=== PATIENT | male | born 1975 | race Caucasian/White ===

== ENCOUNTER 2020-10-30 10:33 | Emergency (ER) | payer OTHER ==
--- NOTE | 2020-10-30 11:30 | RAD REPORT ---
EXAM DESCRIPTION: RAD - Chest Single View - 10/30/2020 11:05 am CLINICAL HISTORY: DYSPNEA Chest pain. COMPARISON: No comparisons FINDINGS: Portable technique limits examination quality. Mild bilateral interstitial lung opacities are seen. This may represent bronchitis or viral pneumonit is. The heart is normal in size. No displaced fractures.
[2020-10-30] MEDS ORDERED: METHYLPREDNISOLONE 125 MG INJ ONE (11:40)
[2020-10-30 11:42] LABS: Absolute Lymphocytes (CBC) 1.2 K/uL (0.7-4.9); Basophils % 0.9 % (0-1.3); Hematocrit 44.1 % (39.6-49.0); Lymphocytes % 28.2 % (15.3-44.8); MPV 9.1 fL (7.6-11.3); RBC Red Blood Cell Count 5.03 M/uL (4.33-5.43)
[2020-10-30 11:58] LABS: ALT/SGPT 32 U/L (12-78); AST/SGOT 24 U/L (15-37); Albumin 3.5 g/dL (3.4-5.0); Alkaline Phosphatase 59 U/L (45-117); BUN Blood Urea Nitrogen 16 mg/dL (7-18); Bicarbonate 27 mmol/L (21-32); Bilirubin Direct 0.2 mg/dL (0-0.2); Bilirubin Total 0.8 mg/dL (0.2-1.0); Ferritin 362.4 ng/mL (26-388); Glucose Level 85 mg/dL (74-106); NT PRO-BNP 8 pg/mL (<125); Potassium 3.8 mmol/L (3.5-5.1); Protein, Total 7.1 g/dL (6.4-8.2); Sodium Level 138 mmol/L (136-145); Troponin (Emerg Dept Use Only) < 0.02 ng/mL (0.0-0.045)
[2020-10-30 12:16] LABS: SARS-COV-2 RT PCR POSITIVE (NEGATIVE)
--- NOTE | 2020-10-30 12:27 | ER ---
Nurse's Notes [facility] Name: Zhang Agee Age: 44 yrs Sex: Male : 1975 Arrival Date: 10/30/2020 Time: 10:35 Bed 20 Private MD: Diagnosis: Coronavirus infection, unspecified;Viral pneumonia, unspecified Presentation: 10/30 10:42 Chief complaint: Patient states: Feeling sick on and off x 1 week. Tested negative for ca1 Covid on 10/23/2020. Fever, headache, vertigo x 1 week. Diarrhea, Nausea x 6 days. SOB since last night. Dry Cough today. Coronavirus screen: Client denies travel out of the [place] in the last 14 days. cough unrelated to allergies, diarrhea, fatigue, fever, headache, nausea, shortness of breath, Client presents with at least one sign or symptom that may indicate coronavirus-19. Standard/surgical mask placed on the client. Provider contacted for isolation considerations. The client reports previous COVID testing was negative. Date of collection: October 23, 2020. Ebola Screen: Patient negative for fever greater than or equal to 101.5 degrees Fahrenheit, and additional compatible Ebola Virus Disease symptoms Patient denies exposure to infectious person. Patient denies travel to an Ebola-affected area in the 21 days before illness onset. No symptoms or risks identified at this time. Initial Sepsis Screen: Does the patient meet any 2 criteria? No. Patient's initial sepsis screen is negative. Does the patient have a suspected source of infection? No. Patient's initial sepsis screen is negative. Risk Assessment: Do you want to hurt yourself or someone else? Patient reports no desire to harm self or others. Onset of symptoms was October 30, 2020. 10:42 Method Of Arrival: Ambulatory ca1 10:42 Acuity: ABBY 3 ca1 Triage Assessment: 10:40 Respiratory: Onset: The symptoms/episode began/occurred x 1 week, the patient has mild rb3 shortness of breath. Historical: - Allergies: 10:44 No Known Allergies; ca1 - PMHx: 10:44 None; ca1 - Immunization history:: Flu vaccine is up to date. - Social history:: Smoking status: Patient denies any tobacco usage or history of. - Family history:: not pertinent. - Hospitalizations: : No recent hospitalization is reported. Screenin:40 Abuse screen: Denies threats or abuse. Nutritional screening: No deficits noted. rb3 Tuberculosis screening: No symptoms or risk factors identified. Fall Risk None identified. Assessment: 10:40 General: Appears in no apparent distress. comfortable, Behavior is calm, cooperative. rb3 Pain: Complains of pain in bodyache. Neuro: Level of Consciousness is awake, alert, obeys commands, Oriented to person, place, time, situation, Reports headache. Cardiovascular: Patient's skin is warm and dry. Respiratory: Reports shortness of breath cough that is productive, Airway is patent Respiratory effort is even, unlabored, Respiratory pattern is regular, symmetrical. GI: Reports diarrhea. : No signs and/or symptoms were reported regarding the genitourinary system. 11:30 Reassessment: Patient appears in no apparent distress at this time. No changes from rb3 previously documented assessment. 12:30 Reassessment: Patient appears in no apparent distress at this time. Patient and/or rb3 family updated on plan of care and expected duration. Pain level reassessed. Patient is alert, oriented x 3, equal unlabored respirations, skin warm/dry/pink. Vital Signs: 10:42 BP 127 / 91; Pulse 86; Resp 18 S; Temp 97(TE); Pulse Ox 95% on R/A; Weight 96.62 kg ca1 (R); Height 5 ft. 8 in. (172.72 cm) (R); 11:30 BP 123 / 96; Pulse 81; Resp 19; Pulse Ox 96% ; rb3 12:30 BP 122 / 91; Pulse 85; Resp 20; Pulse Ox 95% ; rb3 10:42 Body Mass Index 32.39 (96.62 kg, 172.72 cm) ca1 ED Course: 10:35 Patient arrived in ED. ag5 10:37 Jonatan Alford MD is Attending Physician. rn 10:40 Patient has correct armband on for positive identification. Bed in low position. Call rb3 light in reach. Side rails up X 1. Pulse ox on. NIBP on. 10:44 Triage completed. ca1 10:44 Arm band placed on right wrist. ca1 10:46 Darcie Duff, RN is Primary Nurse. rb3 11:05 CXR XRAY In Process Unspecified. EDMS 11:23 No provider procedures requiring assistance completed. Inserted saline lock: 20 gauge ca1 in right antecubital area, using aseptic technique. Blood collected. 11:23 Initial lab(s) drawn, by me, sent to lab. First set of blood cultures drawn by me. ca1 12:32 Juan Alberto De La Vega MD is Referral Physician. rn 12:59 No provider procedures requiring assistance completed. IV discontinued, intact, rb3 bleeding controlled, No redness/swelling at site. Pressure dressing applied. Administered Medications: 11:32 Drug: SOLU-Medrol 125 mg Route: IVP; Site: right antecubital; ca1 11:45 Follow up: Response: No adverse reaction rb3 Outcome: 12:27 Discharge ordered by MD. rn 12:59 Discharged to home ambulatory. rb3 12:59 Condition: stable 12:59 Discharge instructions given to patient, Instructed on discharge instructions, follow up and referral plans. medication usage, Demonstrated understanding of instructions, follow-up care, medications, Prescriptions given X 2. 12:59 Patient left the ED. rb3 Signatures: Dispatcher [employer] EDMS Jonatan Alford MD MD rn Acob, Cheryl RN RN ca1 Casi Marques ag5 Darcie Duff, MARSHALL RN rb3 Corrections: (The following items were deleted from the chart) 13:19 13:18 Patient left the ED. rb3 rb3
--- NOTE | 2020-10-30 12:28 | EDPHYS ---
Physician Documentation [facility] Name: Zhang Agee Age: 44 yrs Sex: Male : 1975 Arrival Date: 10/30/2020 Time: 10:35 Bed 20 Private MD: ED Physician Jonatan Alford HPI: 10/30 10:47 This 44 yrs old Male presents to ER via Ambulatory with complaints of rn Shortness Of Breath, Fever. 10:47 The patient has shortness of breath with light activity. Onset: The symptoms/episode rn began/occurred 1 week(s) ago. Duration: The symptoms are continuous, and are steadily getting worse. The patient's shortness of breath is aggravated by light activity, walking. Associated signs and symptoms: Pertinent positives: productive cough, fever, Pertinent negatives: hemoptysis, loss of consciousness. Severity of symptoms: At their worst the symptoms were moderate in the emergency department the symptoms are unchanged. The patient has not experienced similar symptoms in the past. The patient has not recently seen a physician. Reports cough and worsening sob for 1 week, tested at beginning of illness and was negative, father COVID + and around him at [place]. No chronic lung problems. . Historical: - Allergies: 10:44 No Known Allergies; ca1 - PMHx: 10:44 None; ca1 - Immunization history:: Flu vaccine is up to date. - Social history:: Smoking status: Patient denies any tobacco usage or history of. - Family history:: not pertinent. - Hospitalizations: : No recent hospitalization is reported. ROS: 10:47 Constitutional: + fever Eyes: Negative for injury, pain, redness, and discharge, ENT: rn Negative for injury, pain, and discharge, Neck: Negative for injury, pain, and swelling, Cardiovascular: Negative for chest pain, palpitations, and edema, Respiratory: + sob and cough Abdomen/GI: + diarrhea, no abd pain Back: Negative for injury and pain, MS/Extremity: Negative for injury and deformity, Skin: Negative for injury, rash, and discoloration, Neuro: Negative for numbness, tingling, and seizure. Exam: 10:47 Constitutional: This is a well developed, well nourished patient who is awake, alert, rn mild tachypnea Head/Face: Normocephalic, atraumatic. Eyes: Periorbital areas with no swelling, redness, or edema. ENT: no stridor Cardiovascular: Regular rate and rhythm. No pulse deficits. Respiratory: Mild tachypnea Abdomen/GI: soft, non-tender Skin: Warm, dry MS/ Extremity: Pulses equal, no cyanosis. Neuro: Awake and alert, GCS 15 11:31 ECG was reviewed by the Attending Physician. rn Vital Signs: 10:42 BP 127 / 91; Pulse 86; Resp 18 S; Temp 97(TE); Pulse Ox 95% on R/A; Weight 96.62 kg ca1 (R); Height 5 ft. 8 in. (172.72 cm) (R); 11:30 BP 123 / 96; Pulse 81; Resp 19; Pulse Ox 96% ; rb3 12:30 BP 122 / 91; Pulse 85; Resp 20; Pulse Ox 95% ; rb3 10:42 Body Mass Index 32.39 (96.62 kg, 172.72 cm) ca1 MDM: 10:37 Patient medically screened. rn 12:25 Differential diagnosis: pneumonia, Pulmonary Embolism COVID pneumonia, FLU pneumonia. rn Data reviewed: vital signs, nurses notes, lab test result(s), EKG, radiologic studies, plain films, and as a result, I will discharge patient. Test interpretation: by ED physician or midlevel provider: plain radiologic studies, CXR shoes mild bilateral infiltrate consistent with viral pneumonia. Counseling: I had a detailed discussion with the patient and/or guardian regarding: the historical points, exam findings, and any diagnostic results supporting the discharge/admit diagnosis, lab results, radiology results, the need for outpatient follow up, to return to the emergency department if symptoms worsen or persist or if there are any questions or concerns that arise at home. Special discussion: I discussed with the patient/guardian in detail that at this point there is no indication for admission to the hospital. It is understood, however, that if the symptoms persist or worsen the patient needs to return immediately for re-evaluation. ED course: Pt with mild COVID pneumonia, not hypoxic, procal neg, ferritin normal, will dc home with steroids and prn inhaler. Return precautions given and understood. . 10/30 10:46 Order name: Blood Culture Adult (2) rn 10/30 10:46 Order name: BMP rn 10/30 10:46 Order name: C-Reactive Protein rn 10/30 10:46 Order name: CBC with Diff rn 10/30 10:46 Order name: COVID-19 rn 10/30 10:46 Order name: D-Dimer rn 10/30 10:46 Order name: Ferritin rn 10/30 10:46 Order name: Flu rn 10/30 10:46 Order name: LFT's rn 10/30 10:46 Order name: Procalcitonin rn 10/30 10:46 Order name: Troponin (emerg Dept Use Only); Complete Time: 12: rn 10/30 10:46 Order name: BNP; Complete Time: 12: rn 10/30 10:47 Order name: Blood Culture EDMS 10/30 10:47 Order name: Basic Metabolic Panel; Complete Time: 12: EDND 10/30 10:46 Order name: CXR XRAY; Complete Time: 11:31 rn 10/30 10:46 Order name: EKG; Complete Time: 10:48 rn 10/30 10:46 Order name: Cardiac monitoring; Complete Time: 11: rn 10/30 10:46 Order name: Droplet/Contact Precautions; Complete Time: 11: rn 10/30 10:46 Order name: EKG - Nurse/Tech; Complete Time: 11: rn 10/30 10:46 Order name: IV Start; Complete Time: 11: rn 10/30 10:47 Order name: C-Reactive Protein; Complete Time: 12: EDND 10/30 10:47 Order name: CBC with Automated Diff; Complete Time: 12:05 EDND 10/30 10:47 Order name: D-Dimer; Complete Time: 12: EDND 10/30 10:47 Order name: Ferritin; Complete Time: 12: EDND 10/30 10:47 Order name: Liver (Hepatic) Function; Complete Time: 12:05 EDMS 10/30 10:47 Order name: Procalcitonin; Complete Time: 12:18 EDND 10/30 12:16 Order name: COVID-19/FLU A+B; Complete Time: 12:18 EDND 10/30 10:46 Order name: Labs collected and sent; Complete Time: 11:33 rn 10/30 10:46 Order name: O2 Per Protocol; Complete Time: 11: rn 10/30 10:46 Order name: O2 Sat Monitoring; Complete Time: 11:32 rn EC:31 Rate is 77 beats/min. Rhythm is regular. QRS Malo is Normal. OR interval is normal. QRS rn interval is normal. QT interval is normal. No Q waves. T waves are Normal. No ST changes noted. Clinical impression: Normal ECG. Interpreted by me. Reviewed by me. Administered Medications: 11:32 Drug: SOLU-Medrol 125 mg Route: IVP; Site: right antecubital; ca1 11:45 Follow up: Response: No adverse reaction rb3 Disposition: 10/30/20 12:27 Discharged to Home. Impression: Coronavirus infection, unspecified, Viral pneumonia, unspecified. - Condition is Stable. - Discharge Instructions: Community-Acquired Pneumonia, Adult, COVID-19. - Prescriptions for Prednisone 20 mg Oral Tablet - take 1 tablet by ORAL route as directed for 14 days Take 1 tablet by mouth twice daily for 7 days, followed by 1 tablet by mouth once daily for 7 days.; 21 tablet. Albuterol Sulfate 90 mcg/actuation - inhale 1-2 puff by INHALATION route every 4-6 hours; 1 Inhaler. - Medication Reconciliation Form, Thank You Letter, Antibiotic Education, Prescription Opioid Use, Work release form form. - Follow up: Private Physician; When: As needed; Reason: Recheck today's complaints, Re-evaluation by your physician. Follow up: Juan Alberto De La Vega MD; When: 1 week; Reason: Recheck today's complaints, Re-evaluation by your physician. - Problem is new. - Symptoms are unchanged. Signatures: Dispatcher [employer] [facility] Jonatan Alford MD MD rn Acob, Cheryl RN RN ca1 Darcie Duff RN RN rb3 Corrections: (The following items were deleted from the chart) 11:35 10:47 CORONAVIRUS ordered. [facility] 11:35 10:47 Influenza Screen (A ordered. [facility] 12:32 12:27 10/30/2020 12:27 Discharged to Home. Impression: Coronavirus infection, rn unspecified; Viral pneumonia, unspecified. Condition is Stable. Forms are Medication Reconciliation Form, Thank You Letter, Antibiotic Education, Prescription Opioid Use. Follow up: Private Physician; When: As needed; Reason: Recheck today's complaints, Re-evaluation by your physician. Problem is new. Symptoms are unchanged. rn 13:18 12:32 10/30/2020 12:27 Discharged to Home. Impression: Coronavirus infection, rb3 unspecified; Viral pneumonia, unspecified. Condition is Stable. Discharge Instructions: Community-Acquired Pneumonia, Adult, COVID-19. Prescriptions for Prednisone 20 mg Oral Tablet - take 1 tablet by ORAL route as directed for 14 days Take 1 tablet by mouth twice daily for 7 days, followed by 1 tablet by mouth once daily for 7 days.; 21 tablet, Albuterol Sulfate 90 mcg/actuation - inhale 1-2 puff by INHALATION route every 4-6 hours; 1 Inhaler. and Forms are Medication Reconciliation Form, Thank You Letter, Antibiotic Education, Prescription Opioid Use. Follow up: Private Physician; When: As needed; Reason: Recheck today's complaints, Re-evaluation by your physician. Follow up: Juan Alberto De La Vega; When: 1 week; Reason: Recheck today's complaints, Re-evaluation by your physician. Problem is new. Symptoms are unchanged. rn
[2020-10-30 13:25] VITALS: TEMP 97
[2020-10-30 13:27] VITALS: BP 122/91; O2SAT 95
--- NOTE | 2020-10-31 07:22 | EKG ---
Test Date: 2020-10-30 Test Time: 11:26:29 Broiler Manager: KOURTNEY MEASUREMENT RESULTS: Intervals: Rate: 77 DC: 138 QRSD: 80 QT: 366 QTc: 414 Clint: P: 45 DC: 138 QRS: 39 T: 35 INTERPRETIVE STATEMENTS: Normal sinus rhythm Normal ECG No previous ECG available for comparison Electronically Signed On 10-31-20 07:20:30 [employer] TECH by Miguel Angel Maldonado
== END 2020-10-30 13:18 | disposition home or self-care (01) ==
LOC: ER 10:33
DX: U07.1 COVID-19 (principal); J12.82 Pneumonia due to coronavirus disease 2019
CPT/HCPCS: 93005; 87040 ×2; 85025; 80048; 36415; 85379; 80076; 84484; 82728; 84145; 83880; 0240U; 86140; 71045; 96374; 99284; J2930